=== PATIENT | male | born 1950 | race African-American/Black ===

== ENCOUNTER → 2017-03-19 | Outpatient (CLI) | payer OTHER ==
--- NOTE | 2017-03-20 14:32 | RAD ---
Indication follow-up lymphoma. PET/CT was performed from the skull to the proximal thigh. CT was performed primarily for attenuation and localization purposes as opposed to primary diagnostic purposes. The blood sugar during the examination 137. 11.8 mCi of FDG was administered. Note is made of an outside PET/CT of the neck and upper chest 12/12/2016 demonstrating markedly FDG avid lymph nodes in both axilla, the upper mediastinum and in the neck compatible with the stated diagnosis of lymphoma.. On CT the visualized brain appears unremarkable. There is partial opacification of the right maxillary sinus. Bulky adenopathy in the neck is not seen. In the chest there is some moderate adenopathy in the mediastinum. A few right axillary lymph nodes are noted. There is coronary artery calcification. A dominant soft tissue mass in either lung is not seen. In the abdomen and pelvis cholelithiasis is noted. Marked central or retroperitoneal adenopathy is not seen although there are few periaortic lymph nodes. A definite significant finding in the abdomen or pelvis is not seen. On PET the FDG is symmetrically distributed in the visualized brain. There is no significant uptake in any lymph nodes in the neck compatible with a favorable therapeutic response. Similarly intense activity seen previously in mediastinal lymph nodes has cleared and no significant FDG activity is seen in any mediastinal or hilar lymph nodes on today's study. The FDG is physiologically distributed in the abdomen and pelvis. IMPRESSION: Findings compatible with a favorable therapeutic response. Markedly avid FDG lymph nodes seen previously in the neck and upper chest has resolved and no significantly avid FDG nodes are seen on today's study
== END | disposition home or self-care (01) ==
LOC: PETSC 14:39
PROVIDERS: ATTEND Internal Medicine Hematology & Oncology
DX: C83.38 Diffuse large B-cell lymphoma, lymph nodes of multiple sites (principal)
CPT/HCPCS: 78815; A9552

== ENCOUNTER → 2017-06-13 | Outpatient (CLI) | payer OTHER ==
--- NOTE | 2017-06-13 13:17 | RAD ---
Indication restage lymphoma. PET/CT was performed from the skull to the proximal thigh. CT was performed primarily for localization and attenuation purposes as opposed to primary diagnostic purposes. The blood sugar during the examination 126. 12.6 mCi of FDG was administered. Note is made of a previous examination, interpreted as unremarkable, 03/19/2017. On CT the visualized brain appears unremarkable. No significant finding is seen in the neck. No significant axillary hilar or mediastinal adenopathy is seen. There is no dominant soft tissue mass in the chest. Coronary artery calcification is noted. There is cholelithiasis in the abdomen. An acute or significant finding in the abdomen is not seen. On PET the radiopharmaceutical is symmetrically distributed in the visualized brain. No abnormal FDG activity is seen in the neck. No FDG avid nodes are seen in the axilla, hilar or mediastinal areas. In the abdomen and pelvis the FDG is physiologically distributed. IMPRESSION: No evidence of recurrent lymphoma
== END | disposition home or self-care (01) ==
LOC: PETSC 09:31
PROVIDERS: ATTEND Internal Medicine Hematology & Oncology
DX: C82.89 Other types of follicular lymphoma, extranodal and solid organ sites (principal)
CPT/HCPCS: 78815; A9552